=== PATIENT | female | born 2000 | race Caucasian/White ===

== ENCOUNTER 2021-12-13 06:37 | Inpatient (IN) | payer OTHER ==
[2021-12-13 07:34] VITALS: BMI 29.9
[2021-12-13] MEDS ORDERED: Bupivacaine/Epinephrine 0.25% 30 ML VIAL ONE (08:00)
[2021-12-13] MEDS ORDERED: Methylergonovine 0.2 MG/ML VIAL IM PRN (10:20)
[2021-12-13] MEDS ORDERED: Ondansetron PF 4 MG/2 ML Vial IVP PRN ×2 (10:20→15:43)
[2021-12-13] MEDS ORDERED: HYDROcodone/Acetaminophen 5/325 mg Tablet PO PRN ×2 (10:20)
[2021-12-13] MEDS ORDERED: Carboprost 250 MCG/ML AMP IM PRN (10:20)
[2021-12-13] MEDS ORDERED: Misoprostol 200 MCG TAB PR PRN (10:20)
[2021-12-13] MEDS ORDERED: Butorphanol Tartrate 1 MG/ML VIAL SLOW IVP PRN ×2 (10:20→12:20)
[2021-12-13] MEDS ORDERED: Ibuprofen 800 MG TAB PO PRN (10:20)
[2021-12-13] MEDS ORDERED: hydrALAZINE 20 MG/ML VIAL SLOW IVP PRN (10:20)
[2021-12-13] MEDS ORDERED: Diphenoxylate HCl/Atropine Tablet PO PRN (10:20)
[2021-12-13] MEDS ORDERED: Acetaminophen 500 MG TAB PO PRN (10:20)
[2021-12-13] MEDS ORDERED: Lidocaine 1% (PF) 30 ML VIAL SC PRN (10:20)
[2021-12-13] MEDS ORDERED: Promethazine HCl 25 MG/ML VIAL IM PRN ×2 (10:20→15:43)
[2021-12-13] MEDS ORDERED: NS w/ Oxytocin 30 units 500 ML IV SCH (10:30)
[2021-12-13] MEDS ORDERED: Butorphanol Tartrate 1 MG/ML VIAL ONE (10:47)
[2021-12-13 10:54] LABS: Hemoglobin 13.7 g/dL (12.0-15.5); Mean Corpuscular HGB CONC 35.1 g/dL (32.0-36.0); Mean Corpuscular Volume 88.2 fl (81.6-98.3); Mean Platelet Volume 9.5 fl (7.4-10.4); Platelet Count 223 10x3/uL (150-450); RBC Distribution Width 12.3 % (11.5-14.5); Red Blood Cell (RBC) Count 4.42 10x6/uL (3.90-5.03); White Blood Cell (WBC) Count 12.3 10x3/uL (3.5-10.5)
[2021-12-13 11:38] LABS: Hep B Surf Ag Non-Reactive S/CO (NonReactive); Syphilis Antibody Nonreactive (Nonreactive); Syphilis Antibody Index 0.07 S/CO (<1.00 Non-Reactive)
[2021-12-13 11:39] LABS: HBSAg Index 0.17 S/CO (0-0.99)
[2021-12-13] MEDS ORDERED: Fentanyl 2 mcg/Bup 0.1% Cadd 100 ML ONE (15:09)
[2021-12-13] MEDS ORDERED: diphenhydrAMINE 50 MG/ML VIAL IVP PRN (15:43)
[2021-12-13] MEDS ORDERED: Acetaminophen 325 MG TAB PO PRN (15:43)
[2021-12-13] MEDS ORDERED: Hydrocerin (Eucerin) Cream 120 gm Jar TOP PRN (15:43)
[2021-12-13] MEDS ORDERED: Naloxone HCl 0.4 mg/ml Vial IVP PRN ×2 (15:43)
[2021-12-13] MEDS ORDERED: ePHEDrine Sulfate 50 MG/10 ML VIAL SLOW IVP PRN (15:43)
[2021-12-13] MEDS ORDERED: Lactated Ringer's 500 ML IV PRN (15:43)
[2021-12-13] MEDS ORDERED: Fentanyl 2 mcg/Bupivacaine 0.1% Cassette 100 ML EPIDURAL SCH (15:45)
[2021-12-13] MEDS ORDERED: EPIDURAL Communication Order-Pharmacy FS SCH (15:45)
[2021-12-13 17:13] LABS: SARS-CoV-2 NAA Rapid Test Not Detected (NotDetected)
[2021-12-13] MEDS ORDERED: Terbutaline Sulfate 1 MG/ML VIAL ONE (17:40)
[2021-12-13] MEDS ORDERED: Gentamicin 360 MG in Sodium Chloride 0.9% 100 ML IVPB SCH (22:00)
[2021-12-13] MEDS: NS w/ Oxytocin 30 units 500 ML IV SCH (22:50)
[2021-12-13] MEDS ORDERED: Ampicillin 2 GM in Sodium Chloride 0.9% 100 ML IVPB SCH (23:59)
[2021-12-14] MEDS: NS w/ Oxytocin 30 units 500 ML IV SCH (00:20)
[2021-12-14] MEDS ORDERED: Ondansetron PF 4 MG/2 ML Vial IVP PRN (03:12)
[2021-12-14] MEDS ORDERED: Methylergonovine 0.2 MG/ML VIAL IM PRN (03:12)
[2021-12-14] MEDS ORDERED: Milk Of Magnesia 30 ML UDCUP PO PRN (03:12)
[2021-12-14] MEDS ORDERED: HYDROcodone/Acetaminophen 5/325 mg Tablet PO PRN ×2 (03:12)
[2021-12-14] MEDS ORDERED: Benzocaine-Menthol 82.5 ML CAN TOP PRN (03:12)
[2021-12-14] MEDS ORDERED: Misoprostol 200 MCG TAB VAG PRN (03:12)
[2021-12-14] MEDS ORDERED: Bisacodyl 10 MG SUPP PR PRN (03:12)
[2021-12-14] MEDS ORDERED: hydrALAZINE 20 MG/ML VIAL SLOW IVP PRN (03:12)
[2021-12-14] MEDS ORDERED: NS w/ Oxytocin 30 units 500 ML IV SCH (03:12)
[2021-12-14] MEDS: Ibuprofen 800 MG TAB PO SCH ×4 (06:38→22:14)
[2021-12-14] MEDS: Docusate 100 MG CAP PO SCH ×2 (13:28→22:14)
[2021-12-14] MEDS: Ferrous Sulfate 325 MG TAB PO SCH ×2 (13:28→17:42)
[2021-12-15] MEDS: Ibuprofen 800 MG TAB PO SCH (05:10)
[2021-12-15 08:11] VITALS: BP 117/66; TEMP 98.5
[2021-12-15] MEDS: Ferrous Sulfate 325 MG TAB PO SCH (09:34)
[2021-12-15] MEDS: Docusate 100 MG CAP PO SCH (09:35)
== END 2021-12-15 13:45 | disposition home or self-care (01) | DRG 805 ==
LOC: CSHLD/OP 06:37 → CSHLD 10:58 → CSHPP 12-14 02:50
PROVIDERS: ADMIT Obstetrics & Gynecology; ATTEND Obstetrics & Gynecology
PROC: 10E0XZZ Delivery of Products of Conception, External Approach (ICD-10-PCS; principal; 2021-12-13)
PROC: 0KQM0ZZ Repair Perineum Muscle, Open Approach (ICD-10-PCS; 2021-12-13)
DX: O26.893 Other specified pregnancy related conditions, third trimester (principal); O41.1230 Chorioamnionitis, third trimester, not applicable or unspecified; Z37.0 Single live birth; Z67.41 Type O blood, Rh negative; Z3A.40 40 weeks gestation of pregnancy; Z20.822 Contact with and (suspected) exposure to COVID-19; O76 Abnormality in fetal heart rate and rhythm complicating labor and delivery; O70.1 Second degree perineal laceration during delivery; O90.89 Other complications of the puerperium, not elsewhere classified
CPT/HCPCS: 36415; 51702; 85027; 86780; 86850; 86900; 86901; 87340; 88307; 99285; J0290; J0595; J1580; J2001; J2590; J3490; U0002

== ENCOUNTER 2023-11-05 00:17 | Inpatient (IN) | payer OTHER ==
[2023-11-05 00:58] VITALS: BMI 28.8
[2023-11-05] MEDS ORDERED: fentaNYL/Ropivacaine Epidural 0 ML ONE (01:02)
[2023-11-05] MEDS ORDERED: Penicillin G Potassium 5 MILL.UNITS VIAL ONE (01:02)
[2023-11-05] MEDS ORDERED: Lidocaine 1% (PF) 30 ML VIAL SC PRN (01:03)
[2023-11-05] MEDS ORDERED: hydrALAZINE 20 MG/ML VIAL SLOW IVP PRN ×2 (01:03→04:10)
[2023-11-05] MEDS ORDERED: Tranexamic Acid 1,000 MG/10 ML VIAL IVP PRN (01:03)
[2023-11-05] MEDS ORDERED: Carboprost 250 MCG/ML AMP IM PRN (01:03)
[2023-11-05] MEDS ORDERED: Promethazine HCl 25 MG/ML VIAL IM PRN ×2 (01:03→04:10)
[2023-11-05] MEDS ORDERED: Misoprostol 200 MCG TAB PR PRN (01:03)
[2023-11-05] MEDS ORDERED: Acetaminophen 500 MG TAB PO PRN (01:03)
[2023-11-05] MEDS ORDERED: Ibuprofen 800 MG TAB PO PRN (01:03)
[2023-11-05] MEDS ORDERED: Ondansetron PF 4 MG/2 ML Vial IVP PRN ×2 (01:03→04:10)
[2023-11-05] MEDS ORDERED: Diphenoxylate HCl/Atropine Tablet PO PRN (01:03)
[2023-11-05] MEDS ORDERED: Methylergonovine 0.2 MG/ML VIAL IM PRN (01:03)
[2023-11-05] MEDS ORDERED: Lidocaine 1% (PF) 30 ML VIAL ONE (01:06)
[2023-11-05] MEDS ORDERED: Oxytocin 30 units/NS 500 ML 500 ML ONE (01:06)
[2023-11-05] MEDS ORDERED: Lactated Ringer's 1,000 ML IV SCH (01:15)
[2023-11-05] MEDS ORDERED: Oxytocin 30 units/NS 500 ML 500 ML IV SCH ×2 (01:15→04:10)
[2023-11-05] MEDS ORDERED: Penicillin G Potassium 5 MILL.UNITS in Sodium Chloride 0.9% 100 ML IVPB SCH (01:15)
[2023-11-05 01:27] LABS: Hematocrit 38.8 % (34.9-44.5); Hemoglobin 13.6 g/dL (12.0-15.5); Mean Corpuscular HGB CONC 35.1 g/dL (32.0-36.0); Mean Corpuscular Hemoglobin 28.8 pg (27.0-33.0); Mean Corpuscular Volume 82.2 fl (81.6-98.3); Mean Platelet Volume 9.1 fl (7.4-10.4); Platelet Count 259 10x3/uL (150-450); Red Blood Cell (RBC) Count 4.72 10x6/uL (3.90-5.03); White Blood Cell (WBC) Count 12.2 10x3/uL (3.5-10.5)
[2023-11-05 01:45] LABS: HBSAg Index 0.26 S/CO (0-0.99); Hep B Surf Ag - L&D Non-Reactive S/CO (NonReactive)
[2023-11-05 01:49] LABS: Syphilis Antibody Nonreactive (Nonreactive); Syphilis Antibody Index 0.06 S/CO (<1.00 Non-Reactive)
[2023-11-05] MEDS ORDERED: Preparation H Ointment 28 GM TUBE PR PRN (04:10)
[2023-11-05] MEDS ORDERED: Lanolin Ointment 7 GM TUBE TOP PRN (04:10)
[2023-11-05] MEDS ORDERED: diphenhydrAMINE 25 MG CAP PO PRN (04:10)
[2023-11-05] MEDS ORDERED: Benzocaine-Menthol 82.5 ML CAN TOP PRN (04:10)
[2023-11-05] MEDS ORDERED: Bisacodyl 10 MG SUPP PR PRN (04:10)
[2023-11-05] MEDS ORDERED: Milk Of Magnesia 30 ML UDCUP PO PRN (04:10)
[2023-11-05] MEDS ORDERED: Misoprostol 200 MCG TAB VAG PRN (04:10)
[2023-11-05] MEDS ORDERED: Boostrix 0.5 ML (Tdap) VIAL (>/=7 yrs of age) IM ONE (04:10)
[2023-11-05] MEDS ORDERED: HYDROcodone/Acetaminophen 5/325 mg Tablet PO PRN (04:10)
[2023-11-05] MEDS ORDERED: Penicillin G 2.5 MILL.units 2.5 MILL.UNITS in Premix 1 BAG IVPB SCH (05:00)
[2023-11-05] MEDS: Docusate 100 MG CAP PO SCH ×2 (09:22→20:51)
[2023-11-05] MEDS: Prenatal Vitamin 1 TAB PO SCH (09:26)
[2023-11-05] MEDS: Ferrous Sulfate 325 MG TAB PO SCH ×2 (09:26→12:23)
[2023-11-05] MEDS: Ibuprofen 800 MG TAB PO SCH ×2 (12:16→20:51)
[2023-11-06] MEDS: Ibuprofen 800 MG TAB PO SCH (04:14)
[2023-11-06] MEDS: Ferrous Sulfate 325 MG TAB PO SCH (07:15)
[2023-11-06] MEDS: Prenatal Vitamin 1 TAB PO SCH (08:22)
[2023-11-06] MEDS: Docusate 100 MG CAP PO SCH (08:22)
[2023-11-06 12:16] VITALS: BP 106/68; TEMP 97.6
== END 2023-11-06 12:20 | disposition home or self-care (01) | DRG 806 ==
LOC: CSHLD/OP 00:17 → CSHLD 00:46 → CSHPP 04:05
PROVIDERS: ADMIT Family Medicine; ATTEND Family Medicine
PROC: 10E0XZZ Delivery of Products of Conception, External Approach (ICD-10-PCS; principal; 2023-11-05)
PROC: 0KQM0ZZ Repair Perineum Muscle, Open Approach (ICD-10-PCS; 2023-11-05)
PROC: 3E0234Z Introduction of Serum, Toxoid and Vaccine into Muscle, Percutaneous Approach (ICD-10-PCS; 2023-11-05)
DX: O42.02 Full-term premature rupture of membranes, onset of labor within 24 hours of rupture (principal); O36.0130 Maternal care for anti-D [Rh] antibodies, third trimester, not applicable or unspecified; Z37.0 Single live birth; Z3A.40 40 weeks gestation of pregnancy; O48.0 Post-term pregnancy; O70.1 Second degree perineal laceration during delivery
CPT/HCPCS: 36415; 85027; 85461; 86780; 86850; 86870; 86900; 86901; 87340; 90384; 96372; 99285